=== PATIENT | male | born 1985 | race Caucasian/White ===

== ENCOUNTER 2017-04-11 05:23 | Emergency (ER) | payer SELFPAY ==
[~2017-04-11] VITALS: Ht 180.3 cm; Wt 102.0 kg
[2017-04-11 05:30] VITALS: Ht 180.3 cm; Wt 102.0 kg
[2017-04-11 07:10] VITALS: BP 145/87
== END 2017-04-11 07:10 | disposition home or self-care (01) ==
LOC: ED 05:23
DX: S61.210A Laceration without foreign body of right index finger without damage to nail, initial encounter (principal); W26.0XXA Contact with knife, initial encounter; Y93.89 Activity, other specified; Y99.8 Other external cause status; Y92.090 Kitchen in other non-institutional residence as the place of occurrence of the external cause
CPT/HCPCS: 90715